=== PATIENT | female | born 1945 | race Caucasian/White ===

== ENCOUNTER → 2016-08-19 | Outpatient (CLI) | payer MEDICARE, OTHER ==
[2016-08-19 17:10] LABS: Basophils % (A) 0 %; CH 31.7; CHCM 30.4; Eosinophils # (A) 0.3 k/uL (0-0.7); Eosinophils % (A) 4 %; HCT 39.1 % (34.0-46.0); HDW 2.52; HGB 11.7 gm/dL (11.4-16.0); Hypochromasia Moderate; Luc # (Auto) 0.15; Luc % (Auto) 2; Lymphocytes # (A) 1.3 k/uL (1.0-4.8); Lymphocytes % (A) 18 %; MCH 31.2 pg (25.0-35.0); MCHC 29.8 g/dL (31.0-37.0); MCV 104.6 fL (80.0-100.0); Macrocytosis Moderate; Mean Platelet Volume 7.4; Monocytes # (A) 0.3 k/uL (0-1.0); Monocytes % (A) 4 %; Neutrophils # (A) 5.3 k/uL (1.3-7.7); Neutrophils % (A) 72 %; RBC 3.74 m/uL (3.80-5.40); RDW 14.4 % (11.5-15.5); WBC 7.4 k/uL (3.8-10.6); WBC (Perox) 7.73
[2016-08-19 17:19] LABS: Calcium 9.8 mg/dL (8.4-10.2)
== END | disposition home or self-care (01) ==
LOC: LABWHC1 16:49
PROVIDERS: ATTEND Family Medicine
DX: E11.621 Type 2 diabetes mellitus with foot ulcer (principal); L97.509 Non-pressure chronic ulcer of other part of unspecified foot with unspecified severity; M86.671 Other chronic osteomyelitis, right ankle and foot
CPT/HCPCS: 36415; 80048; 83036; 84134; 85025

== ENCOUNTER → 2016-09-01 | Outpatient (CLI) | payer MEDICARE, OTHER ==
--- NOTE | 2016-09-01 12:23 | MR ---
EXAMINATION TYPE: MR foot RT wo con DATE OF EXAM: 09/01/2016 10:18 AM COMPARISON: NONE HISTORY: diabetes mellitus w/foot ulcer, Chronic osteomyelitis rt foot Standard multiplanar, multisequence MRI departmental protocol Multiplanar, multisequence images of the right foot were acquired. Diffusion weighted imaging was per formed. FINDINGS: There is chronic appearing soft tissue heel ulceration noted. There is no evidence for abnormal signa l within the adjacent os calcis to suggest osteomyelitis at this time. There is thickening of the wesley ntar fascia. Plantar calcaneal and dorsal calcaneal spurring is seen. Achilles tendon is intact. Ther e is a fusion noted about the right ankle. There is resection of the distal fibula and a surgical fix ation and fusion of the tibiotalar joint and ankle mortise. There is osseous spurring noted as well a s a mild soft tissue edema. I do not see evidence for active osteomyelitis. Degenerative changes are seen throughout the bony carpus. No evidence for acute fracture or dislocation. IMPRESSION: 1. Extensive postoperative change of ankle fusion as noted. No evidence for abnormal bone marrow sign al suggest active osteomyelitis. 2. Chronic appearing soft tissue ulcer at the level of the heel with associated thickening of the wesley ntar fascia. No evidence for abnormal signal within the adjacent os calcis to suggest osteomyelitis a t this time.
== END | disposition home or self-care (01) ==
LOC: RADMRIMAIN 09:06
PROVIDERS: ATTEND Family Medicine
DX: E11.621 Type 2 diabetes mellitus with foot ulcer (principal); Z98.1 Arthrodesis status

== ENCOUNTER 2016-09-14 17:22 | Emergency (ER) | payer MEDICARE, OTHER ==
[2016-09-14] MEDS ORDERED: ACETAMINOPHEN TAB 500 MG TAB PO STA (18:39)
[2016-09-14 19:41] LABS: Basophils % (A) 0 %; CH 32.7; Eosinophils # (A) 0.1 k/uL (0-0.7); Eosinophils % (A) 1 %; HCT 34.9 % (34.0-46.0); HDW 2.37; HGB 11.2 gm/dL (11.4-16.0); Luc # (Auto) 0.07; Luc % (Auto) 1; Lymphocytes # (A) 0.5 k/uL (1.0-4.8); Lymphocytes % (A) 5 %; MCH 32.8 pg (25.0-35.0); MCV 102.4 fL (80.0-100.0); Macrocytosis Slight; Mean Platelet Volume 9.1; Monocytes # (A) 0.3 k/uL (0-1.0); Monocytes % (A) 3 %; Neutrophils # (A) 9.1 k/uL (1.3-7.7); Neutrophils % (A) 91 %; RBC 3.41 m/uL (3.80-5.40); RDW 14.4 % (11.5-15.5); WBC (Perox) 10.73
[2016-09-14 19:43] LABS: Glucose,Whole Blood 119 mg/dL (75-99)
[2016-09-14 19:54] LABS: Partial Thromboplastin Time 28.1 sec (22.0-30.0); Prothrombin Time 10.3 sec (9.0-12.0)
[2016-09-14 19:58] LABS: Potassium 4.4 mmol/L (3.5-5.1); Total Bilirubin 0.6 mg/dL (0.2-1.3); Total Protein 6.9 g/dL (6.3-8.2)
--- NOTE | 2016-09-14 20:02 | XR ---
EXAMINATION TYPE: XR chest 2V DATE OF EXAM: 09/14/2016 7:56 PM COMPARISON: None HISTORY: Fever and confusion TECHNIQUE: Frontal and lateral views of the chest are obtained. FINDINGS: Heart appears enlarged. There is no heart failure. Lungs are clear of consolidation. Exam is limited by patient size. I see no pleural effusion. There are no hilar masses. There are chest north ds. IMPRESSION: Cardiomegaly. No active cardiopulmonary disease.
[2016-09-14 20:14] LABS: Creatine Kinase MB 0.6 ng/mL (0.0-2.4)
[2016-09-14 20:17] LABS: Troponin I 0.054 ng/mL (0.000-0.034)
[2016-09-14 20:23] VITALS: RESP 18
--- NOTE | 2016-09-14 20:54 | ED ---
General Adult HPI - General Chief complaint: Headache Stated complaint: CONFUSION FOLLOWING DIALYSIS, FLU LIKE SYMPTOMS Time Seen by Provider: 09/14/16 18:21 Source: patient Mode of arrival: wheelchair Limitations: no limitations - History of Present Illness Initial comments: This is a 71-year-old female presents emergency department for fever at home, chills, a little bit of confusion after dialysis. The family states that she felt warm and they gave her some Motrin at home which mostly resolved her symptoms. At the time she did have a little bit of some generalized body aches and a headache however these have since resolved as well. The patient currently denies any complaints. She is awake and alert and oriented 3. Family states that she is completely back to normal. The patient does have chronic wounds on her lower extremities however these are being monitored by wound care. She has a cast on her right leg that cannot be removed. She denies any abdominal pain, nausea, vomiting, or diarrhea. No chest pain or shortness of breath. She denies any complaints currently. - Related Data Home Medications Medication Instructions Recorded Confirmed Ammonium Lactate Cream [Ammonium 1 applic TOPICAL DAILY 01/29/15 09/14/16 Lactate] Aspirin 81 mg PO 01/29/15 09/14/16 Calcium Acetate [Phoslo] 1,334 mg PO TID 01/29/15 09/14/16 Insulin Glargine [Lantus] 60 unit SQ HS 01/29/15 09/14/16 Insulin Lispro [humaLOG] 2 units SQ [facility] 01/29/15 09/14/16 Levothyroxine Sodium [Levoxyl] 200 mcg PO SUTUWETHSA 01/29/15 09/14/16 Levothyroxine Sodium [Synthroid] 25 mcg PO DAILY 01/29/15 09/14/16 Nystatin 100,000Unit/gm Cream 1 applic TOPICAL BID 01/29/15 09/14/16 [Mycostatin Cream] [place]-3 Fatty Acids/Fish Oil [Fish 1 cap PO HS 01/29/15 09/14/16 Oil 1,000 mg Softgel] Omeprazole [PriLOSEC] 20 mg PO AC-BRKFST 01/29/15 09/14/16 Renal Cap 1 cap PO DAILY 01/29/15 09/14/16 hydrALAZINE HCL [Apresoline] 25 mg PO TID 01/29/15 09/14/16 DULoxetine HCL [Cymbalta] 30 mg PO HS 09/14/16 09/14/16 Doxycycline Hyclate [Vibramycin] 100 mg PO HS 09/14/16 09/14/16 INSULIN LISPRO (humaLOG) [humaLOG See Protocol SQ ACHS 09/14/16 09/14/16 (formulary)] Ibuprofen [Motrin] 200 - 400 mg PO Q6HR PRN 09/14/16 09/14/16 Levothyroxine Sodium [Synthroid] 300 mcg PO MOFR 09/14/16 09/14/16 Allergies Allergy/AdvReac Type Severity Reaction Status Date / Time amoxicillin [From Augmentin] Allergy Swelling Verified 09/14/16 19:07 clavulanic acid Allergy Swelling Verified 09/14/16 19:07 [From Augmentin] gabapentin [From Neurontin] Allergy Unknown Verified 09/14/16 19:07 piperacillin sodium Allergy Itching Verified 09/14/16 19:07 [From Zosyn] pregabalin [From Lyrica] Allergy Unknown Verified 09/14/16 19:07 Sulfa (Sulfonamide Allergy Swelling Verified 09/14/16 19:07 Antibiotics) tazobactam sodium Allergy Rash/Hives Verified 09/14/16 19:07 [From Zosyn] tobramycin Allergy Anaphylaxis Verified 09/14/16 19:07 vancomycin Allergy Rash/Hives Verified 09/14/16 19:07 acetaminophen [From Vicodin] AdvReac Confusion Verified 09/14/16 19:07 alprazolam [From Xanax] AdvReac Hallucinati Verified 09/14/16 19:07 ons codeine AdvReac Hallucinati Verified 09/14/16 19:07 ons haloperidol [From Haldol] AdvReac Hallucinati Verified 09/14/16 19:07 ons haloperidol lactate AdvReac Hallucinati Verified 09/14/16 19:07 [From Haldol] ons hydrocodone bitartrate AdvReac Confusion Verified 09/14/16 19:07 [From Vicodin] levofloxacin AdvReac Confusion Verified 09/14/16 19:07 lorazepam [From Ativan] AdvReac Hallucinati Verified 09/14/16 19:07 ons tramadol HCl [From Ultram] AdvReac Confusion Verified 09/14/16 19:07 Review of Systems ROS Statement: Those systems with pertinent positive or pertinent negative responses have been documented in the HPI. ROS Other: All systems not noted in ROS Statement are negative. Past Medical History Past Medical History: Diabetes Mellitus, Dialysis, Hypertension, Osteoarthritis (OA), Renal Disease, Thyroid Disorder Additional Past Medical History / Comment(s): neuropathy, essential tremors History of Any Multi-Drug Resistant Organisms: MRSA Date of last positivie culture/infection: 2001 MDRO Source:: right heel Past Surgical History: Cholecystectomy, Joint Replacement Additional Past Surgical History / Comment(s): cadaver vein for dialysis left arm Past Anesthesia/Blood Transfusion Reactions: No Reported Reaction Past Psychological History: Depression Smoking Status: Former smoker Past Alcohol Use History: None Reported Past Drug Use History: None Reported - Past Family History Mother Family Medical History: AICD/Pacemaker Father Family Medical History: Hypertension General Exam - General Exam Comments Initial Comments: Constitutional: Awake alert Appears comfortable Head: Normocephalic atraumatic Eyes: no conjunctival injection No scleral icterus EOMI, pupils are 3 mm and reactive bilaterally ENT: TMs clear bilaterally, oropharynx is non-erythematous Neck: No JVD Supple Heart: Regular rate rhythm normal S1-S2 no murmurs Lungs: Clear to auscultation bilaterally No wheezing No rales Abdomen: Soft nondistended nontender Extremities: Non edematous DP pulses intact Radial pulses intact Neuro: A&Ox3 No focal neurologic deficits Psych: Appropriate mood and affect Limitations: no limitations Course Vital Signs 09/14/16 09/14/16 09/14/16 17:31 20:03 20:31 Temperature 101.1 F H 98.5 F Pulse Rate 95 91 80 Respiratory 20 18 18 Rate Blood Pressure 97/45 103/57 90/53 O2 Sat by Pulse 90 L 97 Oximetry EKG Findings - EKG Comments: EKG Findings:: EKG showing normal sinus rhythm with a rate of 75. No ST segment changes or T-wave inversions. QTC is 460. Other intervals are normal. No ectopy. Medical Decision Making - Medical Decision Making This is a 71-year-old female presents emergency department for fever, body aches , headache, and a little bit of confusion. The symptoms had resolved by the time she came to the emergency Department. Temperature was elevated here however it resolved after Tylenol. She was evaluated with blood work and blood cultures were drawn. The patient does not make any urine and thus a urinalysis was not performed. There is no significant leukocytosis. The rest her labwork was unchanged from previous. Patient did have a mild elevation in troponin however she has chronic kidney disease and likely chronic elevation in troponin. She has no chest pain. The patient was awake and alert throughout her emergency department stay had no focal neurologic deficits. This time I feel the patient is okay to go home. She wants to go home and is eager to go home with her daughter. Blood cultures are pending. I told her to keep an eye on her symptoms and if she had further elevation in her temperature or any differing symptoms she needs to return emergency department promptly for reevaluation. Otherwise she is going to call Dr. Interiano tomorrow for an appointment. Influenza was also negative. - Lab Data Result diagrams: 09/14/16 19:20 09/14/16 19:20 Lab Results 09/14/16 09/14/16 09/14/16 Range/Units 19:20 19:20 19:20 WBC 10.0 (3.8-10.6) k/uL RBC 3.41 L (3.80-5.40) m/uL Hgb 11.2 L (11.4-16.0) gm/dL Hct 34.9 (34.0-46.0) % MCV 102.4 H (80.0-100.0) fL MCH 32.8 (25.0-35.0) pg MCHC 32.0 (31.0-37.0) g/dL RDW 14.4 (11.5-15.5) % Plt Count 149 L (150-450) k/uL Neutrophils % 91 % Lymphocytes % 5 % Monocytes % 3 % Eosinophils % 1 % Basophils % 0 % Neutrophils # 9.1 H (1.3-7.7) k/uL Lymphocytes # 0.5 L (1.0-4.8) k/uL Monocytes # 0.3 (0-1.0) k/uL Eosinophils # 0.1 (0-0.7) k/uL Basophils # 0.0 (0-0.2) k/uL Macrocytosis Slight PT (9.0-12.0) sec INR (<1.1) APTT (22.0-30.0) sec Sodium 139 (137-145) mmol/L Potassium 4.4 (3.5-5.1) mmol/L Chloride 96 L (98-107) mmol/L Carbon Dioxide 27 (22-30) mmol/L Anion Gap 16 mmol/L BUN 30 H (7-17) mg/dL Creatinine 4.20 H (0.52-1.04) mg/dL Est GFR (MDRD) Af Amer 13 (>60 ml/min/1.73 sqM) Est GFR (MDRD) Non-Af 10 (>60 ml/min/1.73 sqM) Glucose 124 H (74-99) mg/dL POC Glucose (mg/dL) (75-99) mg/dL POC Glu Trials Manager ID Plasma Lactic Acid Fletcher (0.7-2.0) mmol/L Calcium 9.0 (8.4-10.2) mg/dL Total Bilirubin 0.6 (0.2-1.3) mg/dL AST 22 (14-36) U/L ALT 27 (9-52) U/L Alkaline Phosphatase 97 (38-126) U/L Total Creatine Kinase 46 (30-135) U/L CK-MB (CK-2) 0.6 (0.0-2.4) ng/mL CK-MB (CK-2) Rel Index 1.3 Troponin I 0.054 H* (0.000-0.034) ng/mL Total Protein 6.9 (6.3-8.2) g/dL Albumin 3.8 (3.5-5.0) g/dL Cortisol 9 ug/dL Influenza Type A RNA (Not Detectd) Influenza Type B (PCR) (Not Detectd) 09/14/16 09/14/16 09/14/16 Range/Units 19:20 19:20 19:30 WBC (3.8-10.6) k/uL RBC (3.80-5.40) m/uL Hgb (11.4-16.0) gm/dL Hct (34.0-46.0) % MCV (80.0-100.0) fL MCH (25.0-35.0) pg MCHC (31.0-37.0) g/dL RDW (11.5-15.5) % Plt Count (150-450) k/uL Neutrophils % % Lymphocytes % % Monocytes % % Eosinophils % % Basophils % % Neutrophils # (1.3-7.7) k/uL Lymphocytes # (1.0-4.8) k/uL Monocytes # (0-1.0) k/uL Eosinophils # (0-0.7) k/uL Basophils # (0-0.2) k/uL Macrocytosis PT 10.3 (9.0-12.0) sec INR 1.0 (<1.1) APTT 28.1 (22.0-30.0) sec Sodium (137-145) mmol/L Potassium (3.5-5.1) mmol/L Chloride (98-107) mmol/L Carbon Dioxide (22-30) mmol/L Anion Gap mmol/L BUN (7-17) mg/dL Creatinine (0.52-1.04) mg/dL Est GFR (MDRD) Af Amer (>60 ml/min/1.73 sqM) Est GFR (MDRD) Non-Af (>60 ml/min/1.73 sqM) Glucose (74-99) mg/dL POC Glucose (mg/dL) (75-99) mg/dL POC Glu Trials Manager ID Plasma Lactic Acid Fletcher 1.8 (0.7-2.0) mmol/L Calcium (8.4-10.2) mg/dL Total Bilirubin (0.2-1.3) mg/dL AST (14-36) U/L ALT (9-52) U/L Alkaline Phosphatase (38-126) U/L Total Creatine Kinase (30-135) U/L CK-MB (CK-2) (0.0-2.4) ng/mL CK-MB (CK-2) Rel Index Troponin I (0.000-0.034) ng/mL Total Protein (6.3-8.2) g/dL Albumin (3.5-5.0) g/dL Cortisol ug/dL Influenza Type A RNA Not Detected (Not Detectd) Influenza Type B (PCR) Not Detected (Not Detectd) 09/14/16 Range/Units 19:41 WBC (3.8-10.6) k/uL RBC (3.80-5.40) m/uL Hgb (11.4-16.0) gm/dL Hct (34.0-46.0) % MCV (80.0-100.0) fL MCH (25.0-35.0) pg MCHC (31.0-37.0) g/dL RDW (11.5-15.5) % Plt Count (150-450) k/uL Neutrophils % % Lymphocytes % % Monocytes % % Eosinophils % % Basophils % % Neutrophils # (1.3-7.7) k/uL Lymphocytes # (1.0-4.8) k/uL Monocytes # (0-1.0) k/uL Eosinophils # (0-0.7) k/uL Basophils # (0-0.2) k/uL Macrocytosis PT (9.0-12.0) sec INR (<1.1) APTT (22.0-30.0) sec Sodium (137-145) mmol/L Potassium (3.5-5.1) mmol/L Chloride (98-107) mmol/L Carbon Dioxide (22-30) mmol/L Anion Gap mmol/L BUN (7-17) mg/dL Creatinine (0.52-1.04) mg/dL Est GFR (MDRD) Af Amer (>60 ml/min/1.73 sqM) Est GFR (MDRD) Non-Af (>60 ml/min/1.73 sqM) Glucose (74-99) mg/dL POC Glucose (mg/dL) 119 H (75-99) mg/dL POC Glu Trials Manager ID Branch, Jude Plasma Lactic Acid Fletcher (0.7-2.0) mmol/L Calcium (8.4-10.2) mg/dL Total Bilirubin (0.2-1.3) mg/dL AST (14-36) U/L ALT (9-52) U/L Alkaline Phosphatase (38-126) U/L Total Creatine Kinase (30-135) U/L CK-MB (CK-2) (0.0-2.4) ng/mL CK-MB (CK-2) Rel Index Troponin I (0.000-0.034) ng/mL Total Protein (6.3-8.2) g/dL Albumin (3.5-5.0) g/dL Cortisol ug/dL Influenza Type A RNA (Not Detectd) Influenza Type B (PCR) (Not Detectd) Disposition Clinical Impression: Fever Disposition: HOME SELF-CARE Condition: Stable Instructions: Fever in Adults (ED) Additional Instructions: Please keep benign her symptoms. If you have recurring or worsening symptoms please return emergency Department. Please call Dr. Lopez tomorrow and he can follow-up on her blood cultures. Referrals: Mj Lopez MD [Primary Care Provider] - 1-2 days
[2016-09-14 21:16] VITALS: BP 91/41; PULSE 70; TEMP 98.4
== END 2016-09-14 21:16 | disposition home or self-care (01) ==
LOC: EC 17:22
DX: R50.9 Fever, unspecified (principal); E11.40 Type 2 diabetes mellitus with diabetic neuropathy, unspecified; E11.29 Type 2 diabetes mellitus with other diabetic kidney complication; N28.9 Disorder of kidney and ureter, unspecified; Z99.2 Dependence on renal dialysis; E07.9 Disorder of thyroid, unspecified; G25.0 Essential tremor; I10 Essential (primary) hypertension; M19.90 Unspecified osteoarthritis, unspecified site; Z79.82 Long term (current) use of aspirin; Z79.4 Long term (current) use of insulin; Z79.899 Other long term (current) drug therapy; Z87.891 Personal history of nicotine dependence; Z86.14 Personal history of Methicillin resistant Staphylococcus aureus infection; Z88.6 Allergy status to analgesic agent; Z88.1 Allergy status to other antibiotic agents; Z88.5 Allergy status to narcotic agent; Z88.0 Allergy status to penicillin; Z88.2 Allergy status to sulfonamides; Z88.8 Allergy status to other drugs, medicaments and biological substances
CPT/HCPCS: 36415; 71020; 80053; 82533; 82550; 82553; 83605; 84484; 85025; 85610; 85730; 87040; 87077; 87186; 87502; 93005; 99284